=== PATIENT | female | born 1945 | race Caucasian/White ===

== ENCOUNTER 2016-12-27 20:28 | Observation (INO) | payer OTHER ==
[~2016-12-27] VITALS: Ht 154.9 cm; Wt 77.7 kg
[2016-12-27 21:07] LABS: HEMATOCRIT 43.4 % (36.0-46.0); MCHC 34.1 G/DL (30.0-36.0); MEAN PLAT.VOLUME 9.8 uM^3 (9.5-12.4); PLATELET COUNT 215 K/uL (156-360); RBC DIS.WIDTH-CV 12.5 % (11.8-14.6); RBC DIS.WIDTH-SD 40.3 % (39-53); RED BLOOD COUNT 4.93 M/uL (3.80-5.20); WHITE BLOOD COUNT 14.6 K/uL (4.1-10.2)
[2016-12-27 21:19] LABS: CHLORIDE 103 mEq/L (99-109); POTASSIUM 3.3 mEq/L (3.7-5.4); SODIUM 141 mEq/L (136-147)
[2016-12-27 21:20] LABS: GLUCOSE 181 mg/dL (70-99)
[2016-12-27 21:22] LABS: ANION GAP 19 MEQ/L (2-14)
[2016-12-27 21:24] LABS: GFR ESTIMATE (CALCULATED) 52 mL/min/
[2016-12-27 21:25] LABS: UREA NITROGEN (BUN) 10 mg/dL (9-23)
[2016-12-27 21:31] LABS: TROP-I INTERPRETATION NEGATIVE; TROPONIN-I < 0.01 ng/mL (0.0-0.30)
[2016-12-27] MEDS ORDERED: CLORAZEPATE DI7.5 MG PO (22:32)
[2016-12-27] MEDS ORDERED: FLUOXETINE HCL40 MG PO (22:33)
[2016-12-27] MEDS ORDERED: LISINOPRIL40 MG PO (22:33)
[2016-12-27] MEDS ORDERED: CLOPIDOGREL75 MG PO (22:33)
[2016-12-27] MEDS ORDERED: LO-DOSE ASPIRIN81 M2 PO (22:34)
[2016-12-28 00:06] LABS: D-DIMER ELISA 1.72 mg/L FEU (< 0.57)
[2016-12-28 01:16] VITALS: BP 117/60
[2016-12-28 02:26] LABS: HDL CHOLESTEROL 100 MG/DL (Desirable>=50); LDL CHOLESTEROL 50 mg/dL (Desirable<100); NON-HDL CHOLESTEROL 70 mg/dL (Desirable<160); TOTAL CHOLESTEROL 170 mg/dL (Desirable<200); TRIGLYCERIDES 102 MG/DL (Normal: <150)
[2016-12-28 04:41] VITALS: BP 123/62
[2016-12-28 05:14] LABS: HEMATOCRIT 41.1 % (36.0-46.0); MCHC 34.1 G/DL (30.0-36.0); MEAN PLAT.VOLUME 9.9 uM^3 (9.5-12.4); PLATELET COUNT 206 K/uL (156-360); RBC DIS.WIDTH-CV 12.5 % (11.8-14.6); RBC DIS.WIDTH-SD 40.6 % (39-53); RED BLOOD COUNT 4.67 M/uL (3.80-5.20); WHITE BLOOD COUNT 11.8 K/uL (4.1-10.2)
[2016-12-28 05:35] LABS: TROP-I INTERPRETATION NEGATIVE; TROPONIN-I 0.01 ng/mL (0.0-0.30)
[2016-12-28 05:42] LABS: ALKALINE PHOSPHATASE 97 IU/L (3-129); ANION GAP 8 MEQ/L (2-14); CHLORIDE 103 MEQ/L (99-109); GFR ESTIMATE (CALCULATED) > 59 mL/min/; SAMPLE HEMOLYSIS CHECK 0; SAMPLE ICTERIC CHECK 0; SAMPLE LIPEMIA CHECK 0; SODIUM 138 MEQ/L (136-147); TOTAL BILIRUBIN 0.7 MG/DL (0.0-1.0); UREA NITROGEN (BUN) 10 mg/dL (9-23)
[2016-12-28 05:43] LABS: GLUCOSE 85 mg/dL (70-99); POTASSIUM 4.5 MEQ/L (3.7-5.4)
[2016-12-28 06:23] LABS: INTER. NORMALIZED RATIO 1.1; PROTHROMBIN TIME 10.9 (9.2-11.2); PTT 33.1 (25-32)
[2016-12-28 08:05] VITALS: BP 109/57
[2016-12-28] MEDS ORDERED: PANTOPRAZOLE SO40 MG PO (09:07)
[2016-12-28] MEDS ORDERED: LIPITOR40 MG PO (11:58)
[2016-12-28 13:49] LABS: TROP-I INTERPRETATION NEGATIVE; TROPONIN-I < 0.01 ng/mL (0.0-0.30)
== END 2016-12-28 14:40 | disposition home or self-care (01) ==
LOC: EME → EDBD 20:28 → EME 20:28 → EDOF 23:31 → 5WEST 23:31
PROVIDERS: Emergency Medicine; Hospitalist
DX: R10.13 Epigastric pain (principal); R07.9 Chest pain, unspecified; E78.5 Hyperlipidemia, unspecified; I25.10 Atherosclerotic heart disease of native coronary artery without angina pectoris; Z95.5 Presence of coronary angioplasty implant and graft; I10 Essential (primary) hypertension; F17.200 Nicotine dependence, unspecified, uncomplicated; Z87.11 Personal history of peptic ulcer disease; R10.9 Unspecified abdominal pain; R11.2 Nausea with vomiting, unspecified; Z90.49 Acquired absence of other specified parts of digestive tract
CPT/HCPCS: 71020; 78582; 80048; 80053; 80061; 83880; 84484; 85027; 85379; 85610; 85730; 93005; 93970; 99281; 99285; A9540; A9567; G0378